=== PATIENT | male | born 1960 | race Caucasian/White ===

== ENCOUNTER 2016-04-23 14:28 | Emergency (ER) | payer OTHER ==
[~2016-04-23] VITALS: Ht 190.5 cm; Wt 156.8 kg
[2016-04-23 14:31] VITALS: BP 140/78; PULSE 72; RESP 24; O2SAT 97
[2016-04-23 14:46] VITALS: BP 143/93; PULSE 72; RESP 20; O2SAT 97
--- NOTE | 2016-04-23 14:52 | ED.REPORT ---
HPI-Chest Pain 40 and Over Date of Service Apr 23, 2016 ED Provider: Dr. Preston Pt is a 55 y/o male w/ a hx of HTN, a-fib, presenting to the ED from Urgent Care for A-fib with RvR. At time of interview, his heart rate is 76 and he is asymptomatic. He went to Urgent Care this morning with complaints of sudden- onset substernal chest pain which began at 11:00. His chest pain was exertional and his symptoms began while he was lifting heavy sacks of fertilizer. His pain lasted 1.5 hours and his palpitations lasted 2 hours. He experienced associated diaphoresis, SOB, fatigue, nausea, and rapid palpitations. He denies nausea, vomiting, abdominal pain, edema, SANCHEZ, lightheadedness, syncope. He has experienced an episode similar to this previously at which time he was lifting rebar. He was told he had "an enlarged heart and a-fib" at that time. He has a family history of sudden cardiac in his father. He does not see his PCP regularly. 4 baby ASA were given at Urgent Care. ECG in urgent care showed a- fib with HR 140, no ischemic changes. He is in NSR on arrival. Has had some brief episodes of similar symptoms in the past. Records from [facility] reviewed. He had a normal nuclear medicine stress test in July of 2015 other than possible cardiomegaly. Nursing Notes Stated Complaint: CHEST PAIN Chief Complaint: Chest Pain Nursing Notes Reviewed: Yes Allergies: Coded Allergies: TAPE (Verified Allergy, Severe, Rash, 04/23/16) Uncoded Allergies: PCN (Allergy, Severe, Anaphylaxis, 04/23/16) No Active Prescriptions or Reported Meds General Time Seen by MD: 14:51 Chief Complaint Chest pain Hx Obtained From: Patient, EMS Arrived By: Ambulance Sudden in Onset?: No Onset Occurred: 1 - 4 hours ago Symptom Duration: Since onset Location: : Substernal Quality: Painful Severity: Current: No pain currently Severity: Maximum: Moderate Recent Healthcare: Previous diagnosis Similar Sx Previous: Yes Past Medical History Past Medical History Hypertension Atrial fibrillation Past Surgical History none reported Family History CAD Smoking History Former Smoker Social History Alcohol Use: "Social" Drug Use: Denies drug use Ambulatory Status Independent Review of Systems Respiratory: Reports: Shortness of breath, Denies: Non-productive cough Cardiovascular: Reports: Chest pain, Dyspnea on exertion, Palpitations, Denies: Edema, Syncope GI: Denies: Abdominal pain, Nausea, Vomiting Skin: Reports Diaphoresis Complete sys rev & neg: except as marked. Physical Exam Initial Vital Signs Vital Signs (First) Date Time Temp Pulse Resp B/P Pulse Ox O2 Delivery O2 Flow Rate FiO2 04/23/16 14:31 36.9 72 24 140/78 97 Room Air Initial VS: Reviewed, Vital signs normal Head / Eyes: Atraumatic, Normocephalic, PERRL ENT: Mucous membranes moist, Conjunctiva normal, No scleral icterus Neck: Supple, Full range of motion Extremities: Vascular intact, Neuro intact, No swelling, No tenderness Skin: Warm, Dry, No cyanosis Neurologic: Alert, Oriented, Nonfocal Psychiatric: Mood/affect normal, Behavior normal, Normal thought content General/Constitutional: Awake, Alert, No acute distress, Cooperative, Not toxic appearing Appearance / Presentation: Positive: Obese Respiratory / Chest: Atraumatic, Breath sounds NL, Breath sounds = bilat, No respiratory distress, No rales, No rhonchi, No wheezing, No retractions, No stridor, No chest tenderness, No chest wall deformity, No crepitus Cardiovascular: Heart rate NL, Regular rhythm, Heart sounds NL, No gallop, No murmurs, No rubs, Cap refill not delayed, Peripheral circulation NL Abdomen: Atraumatic, Soft, Non-tender Interpretation & Diagnostics Lab Results Interpretation Result Diagram: 04/23/16 1540 04/23/16 1609 Test 04/23/16 15:40 04/23/16 16:09 04/23/16 18:12 White Blood Count 9.4th/mm3 (3.8-10.1) Red Blood Count 5.26mil/mm3 (4.40-5.80) Hemoglobin 14.9g/dL (13.8-17.2) Hematocrit 44.1% (41.0-50.0) Mean Corpuscular Volume 83.8fL (81-100) Mean Corpuscular Hemoglobin 28.3pg (27.0-35.0) Mean Corpuscular Hemoglobin Concent 33.8% (32.0-37.0) Red Cell Distribution Width 13.0% (12.3-15.4) Platelet Count 176bil/L (150-400) Neutrophils (%) (Auto) 68.1% (40-74) Lymphocytes (%) (Auto) 20.2% (14-46) Monocytes (%) (Auto) 9.5% (4-12) Eosinophils (%) (Auto) 1.8% (0-5) Basophils (%) (Auto) 0.2% (0-3) D-Dimer < 0.5mg/L (<0.50) Sodium Level 142mEq/L (134-144) Potassium Level 4.9mEq/L (3.5-5.2) Chloride Level 108mEq/L (97-108) Carbon Dioxide Level 22mmol/L (18-29) Blood Urea Nitrogen 31mg/dL (6-24) Creatinine 1.09mg/dL (0.76-1.27) Estimat Glomerular Filtration Rate 75mL/min (>59) Glucose Level 94mg/dL (60-99) Calcium Level 9.8mg/dL (8.5-10.1) Magnesium Level 2.0mg/dL (1.6-2.6) Total Bilirubin 0.3mg/dL (0.0-1.2) Aspartate Amino Transf (AST/SGOT) 24U/L (0-50) Alanine Aminotransferase (ALT/SGPT) 22U/L (0-44) Alkaline Phosphatase 45U/L (25-150) Total Protein 6.4g/dL (6.4-8.4) Albumin 3.9g/dL (3.4-5.0) Troponin T < 0.010ug/L (0.0-0.011) ECG Interpretation Time: 15:09 Interpreted by: ED physician Normal ECG Interpretation: Normal ECG w/ rate of... (70), Normal rate, Normal sinus rhythm, No acute ischemic changes, Normal QRS, Normal axis, Normal intervals, No change from prior ECGs, Adequate tracing X-Ray Chest Interpretation Chest Xray Interpretation: IMPRESSION: No acute process. Dictated by: Lonnie Maier M.D. on 04/23/2016 at 15:56 Approved by: Lonnie Maier M.D. on 04/23/2016 at 15:56 View: Portable, 1 view Interpretation / Wet Read by: Interpret - Radiologist Re-Eval/Medical Decision Source of Hx: Old records, EMS Time of Eval: 17:06 Re-Evaluation/Progress Note: Pt rechecked. He is no anxious. He has no chest pain or palpitations while in the ED. Informed pt of need for repeat troponin. Time of Eval: 19:05 Patient Status: Condition improved Re-Evaluation/Progress Note: Pt rechecked, who is resting comfortably. He is informed of repeat troponin results and the plan for discharge. The pt understands and agrees with the plan. All questions are addressed at this time. Counseled Regarding: Diagnosis, Lab results, Need for follow-up, When/why to return to ED Discharge & Departure Primary Impression: Paroxysmal atrial fibrillation Disposition: Home Discharge Condition All VS Reviewed: Yes Condition: Stable Patient Instructions: Atrial Fibrillation (ED) Additional Instructions: Emergency department evaluation today included interview, examination, labs ECG and chest x-ray. Past records from [facility] were reviewed. I note a recent, less than 1-year-old normal stress test. This is reassuring. The ECG from urgent care today clearly demonstrated atrial fibrillation, this is not abnormal and rapid and irregular heart rhythm. By description, you have had this episodically in the past. If you have the symptoms for more than 2 hours or if they are associated with feeling faint or chest pain, seek medical attention immediately. Take an 81 mg aspirin daily. Follow up with cardiology. Referrals: Toribio Hunt MD (PCP) Denisse Brown MD Attestation Portions of this note were transcribed by Maxwell Arevalo. Dr. Kary Johnson personally performed the history, physical exam and medical decision-making; I reviewed and confirmed the accuracy of the information in the transcribed note. Signed by Cathy Jolley, 04/23/16 - 1550 Portions of this note were transcribed by Home Velasco, Dr. Kary oJhnson personally performed the history, physical exam and medical decision-making; I reviewed and confirmed the accuracy of the information in the transcribed note. Signed by: Cathy Ruano, 04/23/16 and 19:17. copies to: Toribio Hunt MD, Donald L MD Apr 23, 2016 14:52 MAXWELL AREVALO Apr 23, 2016 15:04 HOME VELASCO Apr 23, 2016 19:18
--- NOTE | 2016-04-23 15:58 | DRSVH ---
PROCEDURE: X-RAY CHEST ONE VIEW, PORTABLE ([id number]) INDICATIONS: CHEST PAIN TECHNIQUE: One view of the chest was acquired. COMPARISON: [facility], CR, XR CHEST 1VW (PORTABLE), 06/26/2015, 16:06. FINDINGS: Surgical changes and devices: None. Lungs and pleura: No pleural effusions or pneumothorax. Lungs are clear. Mediastinum: Mediastinal contours appear normal. Heart size is normal. Bones and chest wall: No suspicious bony lesions. Overlying soft tissues appear unremarkable. IMPRESSION: No acute process. Dictated by: Lonnie Maier M.D. on 04/23/2016 at 15:56 Approved by: Lonnie Maier M.D. on 04/23/2016 at 15:56
[2016-04-23 16:34] LABS: BASOPHILS % (AUTO) 0.2 % (0-3); EOSINOPHILS % (AUTO) 1.8 % (0-5); MONOCYTES % (AUTO) 9.5 % (4-12); Mean Corpuscular Hemoglobin 28.3 pg (27.0-35.0); Mean Corpuscular Volume 83.8 fL (81-100); NEUTROPHILS % (AUTO) 68.1 % (40-74); Platelet Count 176 bil/L (150-400)
[2016-04-23 16:47] LABS: TROPONIN T < 0.010 ug/L (0.0-0.011)
[2016-04-23 16:54] VITALS: BP 147/84; PULSE 61; RESP 18; O2SAT 99
[2016-04-23] MEDS ORDERED: LORazepam 1 mg Tablet PO ONE (17:15)
[2016-04-23 17:22] VITALS: BP 145/115; PULSE 63; RESP 15; O2SAT 99
[2016-04-23 18:00] VITALS: BP 124/69; PULSE 82; O2SAT 94
[2016-04-23 19:26] VITALS: BP 146/76; PULSE 70; RESP 14; O2SAT 96
== END 2016-04-23 19:27 | disposition home or self-care (01) ==
LOC: EDBD 14:28 → SED 14:28
DX: I48.0 Paroxysmal atrial fibrillation (principal); I10 Essential (primary) hypertension; Z87.891 Personal history of nicotine dependence